=== PATIENT | male | born 1990 | race American Indian/Alaskan Native ===

== ENCOUNTER 2019-04-29 07:10 | Emergency (ER) | payer OTHER ==
[2019-04-29] MEDS ORDERED: TORADOL IM ONE (08:20)
--- NOTE | 2019-04-29 08:24 | Emergency Department Report ---
ED General Adult HPI - General Chief complaint: Rectal Pain Stated complaint: GROIN/ANAL PAIN Time Seen by Provider: 04/29/19 08:15 Source: patient Mode of arrival: Ambulatory Limitations: No Limitations - History of Present Illness Initial comments: Patient is 29 years old male with history of sickle cell disease. Patient presented to the ER complaining of rectal pain for 1 month. Patient stated that S he had an appointment with a GI doctor last week but he missed it. Patient stated that her pain is mainly when he defecated. Patient denied any fever or chills. Patient is homosexual but denied any recent anal intercourse. - Related Data Allergies Allergy/AdvReac Type Severity Reaction Status Date / Time vancomycin AdvReac Unknown Verified 04/29/19 07:21 ED Review of Systems ROS: Stated complaint: GROIN/ANAL PAIN Other details as noted in HPI Comment: All other systems reviewed and negative Constitutional: denies: chills, fever Respiratory: denies: cough, shortness of breath, SOB with exertion, wheezing Gastrointestinal: denies: abdominal pain, nausea, vomiting Neurological: denies: headache, weakness ED Past Medical Hx - Past Medical History Previous Medical History?: Yes Hx Sickle Cell Disease: Yes - Surgical History Past Surgical History?: Yes Hx Cholecystectomy: Yes - Social History Smoking Status: Current Every Day Smoker Substance Use Type: Marijuana ED Physical Exam - General Limitations: No Limitations General appearance: alert, in no apparent distress - Head Head exam: Present: atraumatic, normocephalic - ENT ENT exam: Present: normal exam, normal orophraynx, mucous membranes moist - Neck Neck exam: Present: normal inspection, full ROM. Absent: meningismus, lymphadenopathy, thyromegaly - Respiratory Respiratory exam: Present: normal lung sounds bilaterally - Cardiovascular Cardiovascular Exam: Present: regular rate, normal rhythm, normal heart sounds - GI/Abdominal GI/Abdominal exam: Present: soft, normal bowel sounds. Absent: distended, tenderness, guarding, rebound, rigid, organomegaly, mass, bruit, pulsatile mass, hernia - Rectal Rectal exam: Present: tenderness, other (patient does have an ulceration around his anal area with no discharge. Positive for anal fissure.) - Extremities Exam Extremities exam: Present: normal inspection, full ROM, normal capillary refill - Back Exam Back exam: Present: normal inspection. Absent: CVA tenderness (R), CVA tenderness (L) - Neurological Exam Neurological exam: Present: alert, oriented X3, CN II-XII intact - Skin Skin exam: Present: warm ED Course Vital Signs 04/29/19 07:22 Temperature 98.0 F Pulse Rate 94 H Respiratory 16 Rate Blood Pressure 111/56 O2 Sat by Pulse 99 Oximetry Critical care attestation.: If time is entered above; I have spent that time in minutes in the direct care of this critically ill patient, excluding procedure time. ED Disposition Clinical Impression: Rectal pain, Anal fissure Disposition: - TO HOME OR SELFCARE Is pt being admited?: No Condition: Stable Instructions: Anal Fissure (ED) Referrals: RADHA GTZWATERLOO MD SCOTTIE [Primary Care Provider] - 3-5 Days ZAID OCHOA MD [Staff Physician] - 3-5 Days
[2019-04-29 08:36] VITALS: BP 114/60
== END 2019-04-29 08:33 | disposition home or self-care (01) ==
LOC: ED 07:10
DX: K60.2 Anal fissure, unspecified (principal); D57.1 Sickle-cell disease without crisis; F17.200 Nicotine dependence, unspecified, uncomplicated; F12.10 Cannabis abuse, uncomplicated; Z90.49 Acquired absence of other specified parts of digestive tract; Z88.1 Allergy status to other antibiotic agents
CPT/HCPCS: 96372; 99282; J1885

== ENCOUNTER 2021-04-23 11:51 | Emergency (ER) | payer OTHER ==
[2021-04-23 12:51] VITALS: BP 101/63
--- NOTE | 2021-04-23 12:58 | Emergency Department Report ---
ED Extremity Problem HPI - General Stated complaint: LT LEG PAIN - History of Present Illness Initial comments: Patient is a 31-year-old -[place] male with a history of sickle cell anemia who presents to the ED with complaint of acute onset persistent left leg pain diffusely for the last 3 days after strenuous sexual activity for 2 hours at an abandoned Bldg. 3 days ago. Patient states that the pain has been persistent and worse with ambulation. Patient denies fall, traumatic injury, dizziness, syncope, chest pain, shortness of breath, back pain, nausea and vomiting, numbness and tingling or weakness of lower extremities bilaterally or change in vision. MD Complaint: extremity pain (left leg pain), joint paint (left knee and ankle pain) -: Sudden, days(s) (3) Location: left, lower extremity, knee (left) History of Same: No -: Yes myalgia, Yes arthralgia Radiation: distal Severity scale (0 -10): 8 Quality: aching, sharp Consistency: constant Improves with: nothing Worsens with: weight bearing, walking, exertion, palpation Associated Symptoms: denies other symptoms, myalgias, arthralgias - Related Data Previous Rx's Medication Instructions Recorded Last Taken Type Ondansetron [Zofran ODT TAB] 4 mg PO Q8HR PRN #14 tab.rapdis 04/29/19 Unknown Rx traMADoL [Ultram 50 MG tab] 50 mg PO Q6HR PRN #14 tablet 04/29/19 Unknown Rx Folic Acid 1 tab PO QDAY #30 tab 01/07/21 Unknown Rx Hydroxyurea 500 mg PO BID #60 capsule 01/07/21 Unknown Rx Oxycodone HCl/Acetaminophen 1 each PO Q6HR PRN #12 tablet 01/07/21 Unknown Rx [Percocet 10/325 mg] cefUROXime [Ceftin] 500 mg PO Q12H #20 tablet 01/07/21 Unknown Rx Baclofen 20 mg PO Q12H PRN #20 tablet 04/23/21 Unknown Rx Naproxen 500 mg PO Q12H PRN #24 tablet 04/23/21 Unknown Rx Allergies Allergy/AdvReac Type Severity Reaction Status Date / Time vancomycin AdvReac Unknown Verified 04/29/19 07:21 ED Review of Systems ROS: Stated complaint: LT LEG PAIN Other details as noted in HPI Constitutional: denies: chills, fever Eyes: denies: eye pain, eye discharge, vision change ENT: denies: ear pain, throat pain Respiratory: denies: cough, shortness of breath, wheezing Cardiovascular: denies: chest pain, palpitations Endocrine: no symptoms reported Gastrointestinal: denies: abdominal pain, nausea, diarrhea Genitourinary: denies: urgency, dysuria Musculoskeletal: arthralgia (Diffuse left leg pain including left knee and ankle), myalgia. denies: back pain, joint swelling Skin: denies: rash, lesions Neurological: denies: headache, weakness, paresthesias Psychiatric: denies: anxiety, depression Hematological/Lymphatic: denies: easy bleeding, easy bruising ED Past Medical Hx - Past Medical History Hx Sickle Cell Disease: Yes - Surgical History Hx Cholecystectomy: Yes - Social History Smoking Status: Current Every Day Smoker - Medications Home Medications: Home Medications Medication Instructions Recorded Confirmed Last Taken Type Ondansetron [Zofran ODT TAB] 4 mg PO Q8HR PRN #14 tab.rapdis 04/29/19 01/01/21 Unknown Rx traMADoL [Ultram 50 MG tab] 50 mg PO Q6HR PRN #14 tablet 04/29/19 01/01/21 Unknown Rx Folic Acid 1 tab PO QDAY #30 tab 01/07/21 Unknown Rx Hydroxyurea 500 mg PO BID #60 capsule 01/07/21 Unknown Rx Oxycodone HCl/Acetaminophen 1 each PO Q6HR PRN #12 tablet 01/07/21 Unknown Rx [Percocet 10/325 mg] cefUROXime [Ceftin] 500 mg PO Q12H #20 tablet 01/07/21 Unknown Rx Baclofen 20 mg PO Q12H PRN #20 tablet 04/23/21 Unknown Rx Naproxen 500 mg PO Q12H PRN #24 tablet 04/23/21 Unknown Rx ED Physical Exam - General General appearance: alert, in no apparent distress - Head Head exam: Present: atraumatic, normocephalic, normal inspection - Eye Eye exam: Present: normal appearance, PERRL, EOMI Pupils: Present: normal accommodation - ENT ENT exam: Present: normal exam, normal orophraynx, mucous membranes moist, TM's normal bilaterally, normal external ear exam - Neck Neck exam: Present: normal inspection, full ROM - Respiratory Respiratory exam: Present: normal lung sounds bilaterally. Absent: respiratory distress, wheezes, rales, rhonchi, chest wall tenderness, accessory muscle use, decreased breath sounds, prolonged expiratory - Cardiovascular Cardiovascular Exam: Present: regular rate, normal rhythm, normal heart sounds. Absent: systolic murmur, diastolic murmur, rubs, gallop - GI/Abdominal GI/Abdominal exam: Present: soft, normal bowel sounds. Absent: tenderness, guarding, rebound, hyperactive bowel sounds, hypoactive bowel sounds, organomegaly - Extremities Exam Extremities exam: Present: normal inspection, full ROM, tenderness (Palpable left thigh, left knee and left lower leg tenderness), normal capillary refill. Absent: pedal edema, joint swelling, calf tenderness - Back Exam Back exam: Present: normal inspection, full ROM. Absent: tenderness, CVA tenderness (R), CVA tenderness (L), muscle spasm, paraspinal tenderness, delmis tebral tenderness - Neurological Exam Neurological exam: Present: alert, oriented X3, CN II-XII intact, normal gait, reflexes normal - Psychiatric Psychiatric exam: Present: normal affect, normal mood - Skin Skin exam: Present: warm, dry, intact, normal color. Absent: rash ED Medical Decision Making - Medical Decision Making This is a 31-year-old -[place] male with a history of sickle cell anemia who presents to the ED with complaint of acute onset persistent left leg pain diffusely for the last 3 days after strenuous sexual activity for 2 hours at an abandoned Bldg. 3 days ago. Patient states that the pain has been persistent and worse with ambulation. In the ED, patient is alert and oriented x3 and is not in any distress. Patient is hemodynamically stable. Based on the patient's history and physical exam findings, the patient will discharge home on pain medications and muscle relaxants and was advised to follow-up with his primary care physician in 3 to 5 days for reevaluation or return to the ED immediately if symptoms get worse. - Differential Diagnosis Muscle strain; muscle spasm; tendinitis Critical care attestation.: If time is entered above; I have spent that time in minutes in the direct care of this critically ill patient, excluding procedure time. ED Disposition Clinical Impression: Muscle spasm of left lower extremity Muscle strain of left lower extremity Qualifiers: Encounter type: initial encounter Qualified Code(s): S86.912A - Strain of unspecified muscle(s) and tendon(s) at lower leg level, left leg, initial encounter Disposition: - TO HOME OR SELFCARE Is pt being admited?: No Does the pt Need Aspirin: No Condition: Stable Instructions: Muscle Cramps and Spasms, [id number], Muscle Strain, [id number] Additional Instructions: Your symptoms are likely due to muscle strain and muscle spasm following strenuous physical activity. Therefore take medications with food, drink plenty of fluids and follow-up with your primary care physician in 5 to 7 days for reevaluation. Return to the ED immediately if symptoms get worse. Prescriptions: Baclofen 20 mg PO Q12H PRN #20 tablet PRN Reason: Muscle Spasm Naproxen 500 mg PO Q12H PRN #24 tablet PRN Reason: Pain , Severe (7-10) Referrals: [facility] [Provider Group] - 3-5 Days Forms: Work/School Release Form(ED) Time of Disposition: 12:51 Print Language: AZERI
== END 2021-04-23 14:26 | disposition home or self-care (01) ==
LOC: ED 11:51
DX: S86.912A Strain of unspecified muscle(s) and tendon(s) at lower leg level, left leg, initial encounter (principal); F17.200 Nicotine dependence, unspecified, uncomplicated; Z90.49 Acquired absence of other specified parts of digestive tract; Z79.899 Other long term (current) drug therapy; Z88.8 Allergy status to other drugs, medicaments and biological substances; X58.XXXA Exposure to other specified factors, initial encounter; Y93.89 Activity, other specified; Y92.89 Other specified places as the place of occurrence of the external cause; Y99.8 Other external cause status
CPT/HCPCS: 99282

== ENCOUNTER 2021-07-09 14:10 | Emergency (ER) | payer OTHER ==
[2021-07-09 19:08] VITALS: BP 101/61
== END 2021-07-09 20:45 | disposition left against medical advice (07) ==
LOC: ED 14:10
DX: M79.671 Pain in right foot (principal); Z53.21 Procedure and treatment not carried out due to patient leaving prior to being seen by health care provider